=== PATIENT | male | born 1950 | race African-American/Black ===

== ENCOUNTER 2019-04-18 01:10 | Emergency (ER) | payer OTHER, MEDICARE ==
[~2019-04-18] VITALS: Ht 175.3 cm; Wt 93.0 kg
[2019-04-18] MEDS ORDERED: BACITRACIN TOP OINT 1 UD PKG TOP ONE (06:30)
[2019-04-18] MEDS ORDERED: LIDOCAINE 1% (LOCAL ANESTH.) PF 5ml SDV ID ONE (06:30)
[2019-04-18] MEDS ORDERED: LIDOCAINE W/ EPINEPHRINE 2% INJ 20ML VIAL ONE (06:41)
[2019-04-18] MEDS ORDERED: LIDOCAINE 1% HCL (LOCAL ANESTH.) INJ 20ML MDV ONE (06:41)
[2019-04-18] MEDS ORDERED: TETANUS-DIPTH-ACEL PERTUSSIS 0.5ML SYRG IM ONE (07:00)
[2019-04-18 07:40] VITALS: BP 145/95
[2019-04-18] MEDS ORDERED: NEOMYCIN-BACITRACIN-POLYM UNITDOSE PKG TOP OINT TOP ONE (08:00)
== END 2019-04-18 08:15 | disposition home or self-care (01) ==
LOC: ER 01:15
DX: S81.812A Laceration without foreign body, left lower leg, initial encounter (principal); W26.9XXA Contact with unspecified sharp object(s), initial encounter; Y93.89 Activity, other specified; Y99.8 Other external cause status; Y92.89 Other specified places as the place of occurrence of the external cause
CPT/HCPCS: 12006; 90471; 90715; 99284; J2001

== ENCOUNTER 2019-04-23 16:03 | Emergency (ER) | payer MEDICARE, OTHER ==
[~2019-04-23] VITALS: Ht 175.3 cm; Wt 90.7 kg
[2019-04-23 16:13] VITALS: BP 152/94
[2019-04-23] MEDS ORDERED: cefTRIAXone SOD 1,000 MG VL IM ONE (17:00)
== END 2019-04-23 17:22 | disposition home or self-care (01) ==
LOC: ER 16:08
DX: S81.812D Laceration without foreign body, left lower leg, subsequent encounter (principal); X58.XXXD Exposure to other specified factors, subsequent encounter
CPT/HCPCS: 96372; 99283; J0696

== ENCOUNTER 2019-04-28 10:24 | Emergency (ER) | payer OTHER ==
[~2019-04-28] VITALS: Ht 175.3 cm; Wt 90.7 kg
[2019-04-28 10:29] VITALS: BP 161/93
== END 2019-04-28 11:12 | disposition home or self-care (01) ==
LOC: ER 10:24
DX: S81.812D Laceration without foreign body, left lower leg, subsequent encounter (principal); X58.XXXD Exposure to other specified factors, subsequent encounter

== ENCOUNTER 2019-05-07 11:07 | Emergency (ER) | payer BC, OTHER ==
[~2019-05-07] VITALS: Ht 175.3 cm; Wt 90.7 kg
[2019-05-07 11:59] VITALS: BP 166/87
== END 2019-05-07 12:56 | disposition home or self-care (01) ==
LOC: ER 11:08
DX: S81.812D Laceration without foreign body, left lower leg, subsequent encounter (principal); X58.XXXD Exposure to other specified factors, subsequent encounter

== ENCOUNTER 2022-09-24 10:43 | Emergency (ER) | payer BC ==
[~2022-09-24] VITALS: Ht 177.8 cm; Wt 93.4 kg
[2022-09-24] MEDS ORDERED: cefTRIAXone SOD 1,000 MG VL IM ONE (12:00)
[2022-09-24 12:04] VITALS: BP 185/104
[2022-09-24] MEDS ORDERED: ACET-1080 PO (12:10)
[2022-09-24] MEDS ORDERED: AMOX-277 PO (12:10)
== END 2022-09-24 12:24 | disposition home or self-care (01) ==
LOC: ER 10:43
DX: S61.252A Open bite of right middle finger without damage to nail, initial encounter (principal); L08.9 Local infection of the skin and subcutaneous tissue, unspecified; S61.232A Puncture wound without foreign body of right middle finger without damage to nail, initial encounter; L02.511 Cutaneous abscess of right hand; I10 Essential (primary) hypertension; Z79.2 Long term (current) use of antibiotics; Z79.899 Other long term (current) drug therapy; W54.0XXA Bitten by dog, initial encounter; Y93.89 Activity, other specified; Y92.89 Other specified places as the place of occurrence of the external cause; Y99.8 Other external cause status
CPT/HCPCS: 26010; 96372; 99283; J0696

== ENCOUNTER 2022-09-26 10:25 | Emergency (ER) | payer BC ==
[~2022-09-26] VITALS: Ht 177.8 cm; Wt 98.0 kg
[~2022-09-26 10:25] MED LIST: ACET-1080 PO; AMOX-277 PO
[2022-09-26 10:54] VITALS: BP 184/93
== END 2022-09-26 11:29 | disposition home or self-care (01) ==
LOC: ER 10:36
DX: L02.511 Cutaneous abscess of right hand (principal); I10 Essential (primary) hypertension; Z79.899 Other long term (current) drug therapy; Z79.2 Long term (current) use of antibiotics